=== PATIENT | male | born 1950 | race Caucasian/White ===

== ENCOUNTER → 2019-11-08 14:21 | Outpatient (BNVA) | payer MEDICAID, SELFPAY | PROVIDERS: Family Provider Nurse Practitioner; PCP Nurse Practitioner; Visit Provider Nurse Practitioner Family | DX: Z13.6 Encounter for screening for cardiovascular disorders (principal); I49.3 Ventricular premature depolarization; E55.9 Vitamin D deficiency, unspecified; F41.9 Anxiety disorder, unspecified; Z86.39 Personal history of other endocrine, nutritional and metabolic disease; F32.9 Major depressive disorder, single episode, unspecified | CPT/HCPCS: 80053; 80061; 82652; 84443; 85025 ==

== ENCOUNTER → 2021-01-01 14:55 | Outpatient (BNVA) | payer MEDICAID, SELFPAY | PROVIDERS: Family Provider Nurse Practitioner; PCP Nurse Practitioner; Visit Provider Nurse Practitioner Family | DX: M54.5 Low back pain (principal); S39.92XA Unspecified injury of lower back, initial encounter; X58.XXXA Exposure to other specified factors, initial encounter | CPT/HCPCS: 72100 ==

== ENCOUNTER 2021-07-27 19:25 | Emergency (ER) | payer MEDICAID, SELFPAY ==
[2021-07-27 19:28] VITALS: BP 126/80; PULSE 113; RESP 16; TEMP 36.6; O2SAT 97; BMI 17.7
--- NOTE | 2021-07-27 19:42 | CTR_ITS ---
PROCEDURE INFORMATION: Exam: CT Head Without Contrast Exam date and time: 07/27/2021 7:42 PM Age: 70 years old Clinical indication: Dizziness; Patient HX: C/O vertigo TECHNIQUE: Imaging protocol: Computed tomography of the head without contrast. Radiation optimization: All CT scans at this facility use at least one of these dose optimization techniques: automated exposure control; mA and/or kV adjustment per patient size (includes targeted exams where dose is matched to clinical indication); or iterative reconstruction. COMPARISON: CT head wo con* [id number] 06/11/2016 10:09 PM RADIATION DOSE METRICS: Total DLP (mGy-cm): 827.58 FINDINGS: Brain: No CT evidence for acute ischemia, mass or hemorrhage. Sulcal widening and ventricular enlargement are age related changes due to white matter volume loss and have slightly increased since 2016. Cerebral ventricles: No ventriculomegaly. Paranasal sinuses: Visualized sinuses are unremarkable. No fluid levels. Mastoid air cells: Visualized mastoid air cells are well aerated. Bones/joints: Unremarkable. No acute fracture. Soft tissues: Unremarkable. CT/CT head wo con* [id number] IMPRESSION: 1. No acute intracranial findings. 2. Age related changes Radiation Dose CTDIVOL = (mGy): DLP = 827.58 (mGy-cm)
--- NOTE | 2021-07-27 19:44 | ECG_ITS ---
[facility] Test Date: 2021-07-27 Pat Name: Minor Pardo Department: Room: Gender: Male Music Industry Intern: : 1950 Requested By: Hero Iyer Order Number: [id number] Corbett MD: Sheila Powers M.D. Measurements Intervals [place] Rate: 87 P: 81 VT: 135 QRS: 82 QRSD: 85 T: 83 QT: 312 QTc: 376 Interpretive Statements SINUS RHYTHM Compared to ECG 08/08/2015 10:15:32 T-wave abnormality no longer present Electronically Signed On 07-28-2021 21:07:05 CDT by Sheila Powers M.D. [id number] f
[2021-07-27 19:46] VITALS: BP 118/69; PULSE 94; RESP 16; TEMP 36.8; O2SAT 99
--- NOTE | 2021-07-27 19:46 | ED_ITS ---
HPI - Dizziness General: Chief Complaint: Dizziness Stated Complaint: Dizzy Time Seen by Provider: 07/27/21 19:36 History of Present Illness: HPI Narrative: 70-year-old male presents due to vertigo and chest pain. States vertigo started today when he turns his head. Is worse with turning the head. Denies any headache. Denies any focal numbness weakness or tingling. Denies any syncope. Also reports for the past 6 days has had constant right lateral chest pain. He believes he strained muscles. Denies any exertional or pleuritic component. Denies any shortness of breath or lower extremity pain or swelling. Denies nausea or vomiting. Denies fevers or chills. Review of Systems Narrative: - CONSTITUTIONAL: Denies weight loss, fever and chills. - HEENT: Denies changes in vision and hearing. - RESPIRATORY: Denies SOB and cough. - CV: As above - GI: Denies abdominal pain, nausea, vomiting and diarrhea. - : Denies dysuria and urinary frequency. - MSK: Denies myalgia and joint pain. - SKIN: Denies rash and pruritus. - NEUROLOGICAL: As above - PSYCHIATRIC: Denies suicidal ideation [facility] ED PFSH: Medical History Anxiety and depression History of iron deficiency PVC (premature ventricular contraction) Vitamin D deficiency Social History History of recent travel: Yes Details: [facility] Out of country: Yes Physical Exam Narrative: EXAM NARRATIVE: - GENERAL: Alert and oriented x 3. No acute distress. Well-nourished. - EYES: EOMI. Anicteric. - HENT: Atraumatic, no C-spine tenderness. Moist mucous membranes. No scleral icterus. No cervical lymphadenopathy. - LUNGS: Clear to auscultation bilaterally. No accessory muscle use. Equal lung sounds bilaterally. No respiratory distress. - CARDIOVASCULAR: Regular rate and rhythm. No murmur. No JVD. - ABDOMEN: Soft, non-tender and non-distended. Negative CVA tenderness bilaterally, no rebound or guarding, negative Bueno sign. No palpable masses. - EXTREMITIES: No edema. Non-tender. - SKIN: No rashes or lesions. Warm. - NEUROLOGIC: Positive Odette-Hallpike, positive head impulse but otherwise negative hints exam. GCS 15. no meningismus or focal neurological deficits. CN II-XII grossly intact. - PSYCHIATRIC: Cooperative. Appropriate mood and affect. Course Vital Signs: Vital signs: Vital Signs Temperature 98.3 F 07/27/21 22:21 Pulse Rate 94 07/27/21 22:21 Respiratory Rate 16 07/27/21 22:21 Blood Pressure 113/77 07/27/21 22:21 Pulse Oximetry 97 07/27/21 22:21 MDM - Dizziness MDM Narrative: Medical decision making narrative: 70-year-old male presents with vertigo. This inducible. Symptoms consistent with BPV. Improved with meclizine. CT scan of the head does not reveal any cranial hemorrhage or other acute abnormality remainder of neurologic exam is unremarkable. Symptoms started more than 24 hours ago. He also complains of 6 days of mild nonpleuritic nonexertional constant chest pain. Is inducible on exam by palpation of the right lateral chest. Suspect it is musculoskeletal. EKG and troponins not revealing sign of acute ischemia or other acute abnormality. Age- adjusted D-dimer is negative. Chest x-ray does not reveal pneumothorax or consolidation. No signs of broken ribs. Denies any history of hypertension hyperlipidemia diabetes or any other cardiac risk factors. Heart score would be 2 due to age. Prescription for meclizine provided. Referral to neurology provided. At this time I believe patient would be safe for discharge and outpatient follow-up. Return precautions provided. Plan was reviewed with the patient who expressed understanding. Questions answered. Patient will follow up with PCP. Patient discharged in stable condition. Lab Data: Labs: Lab Results 07/27/21 07/27/21 07/27/21 19:44 20:06 20:06 WBC RBC Hgb Hct MCV MCH MCHC RDW Plt Count MPV Neut % (Auto) Lymph % (Auto) Carter % (Auto) Eos % (Auto) Baso % (Auto) Neut # (Auto) Lymph # (Auto) Carter # (Auto) Eos # (Auto) Baso # (Auto) Nucleated RBC % (a uto) Nucleated RBCs # D-Dimer Sodium Potassium Chloride Carbon Dioxide Anion Gap BUN Creatinine GFR Calculation Glucose Calculated Osmolal ity Calcium Total Bilirubin AST ALT Alkaline Phosphata se Troponin T Baselin e NT-Pro-B Natriuret Pep Total Protein Albumin Globulin TSH Urine Color Yellow (Yellow) Urine Appearance Clear (CLEAR) Urine pH 5 (5-7) Ur Specific Gravit y 1.025 (1.005-1.030) Urine Protein Neg (Negative) Urine Glucose (UA) Norm (Normal) Urine Ketones Negative (Negative) Urine Blood Neg (Negative) Urine Nitrate Negative (Negative) Urine Bilirubin Neg (Negative) Urine Urobilinogen Norm mg/dL mg/dL (Negative) Ur Leukocyte Brandi ase Negative (Negative) Urine RBC 0-4 /hpf H /hpf (0-2) Urine WBC 0-4 /hpf H /hpf (0-5) Ur Squamous Epith Cells 0-4 /hpf H /hpf (0-5) Amorphous Sediment Not Reportable Urine Bacteria Trace /hpf /hpf (NONE) Urine Mucus 1+ /hpf /hpf Urine Opiates Scre en Negative ng/mL ng /mL (Negative) Ur Barbiturates Sc reen Negative ng/mL ng /mL (Negative) Ur Phencyclidine S crn Negative ng/mL ng /mL (Negative) Ur Amphetamines Sc reen Negative ng/mL ng /mL (Negative) U Benzodiazepines Scrn Negative ng/mL ng /mL (Negative) Urine Cocaine Scre en Negative ng/mL ng /mL (Negative) U Marijuana (THC) Screen Negative ng/mL ng /mL (Negative) SARS-CoV-2 Ag (Rap id) Negative (Negative) 07/27/21 07/27/21 07/27/21 20:08 20:08 20:08 WBC 5.5 10^3/uL 10^3/ uL (4.0-10.0) RBC 4.96 10^6/uL 10^6 /uL (4.1-5.3) Hgb 14.7 g/dL g/dL (11.7-16.6) Hct 44.3 % % (42.0-52.0) MCV 89.3 fl fl (80-94) MCH 29.6 pg pg (28.0-34.0) MCHC 33.2 g/dL g/dL (30.0-36.0) RDW 13.3 % % (12.1-15.1) Plt Count 303 10^3/cmm 10^3 /cmm (130-400) MPV 9.0 fL fL (7.4-10.4) Neut % (Auto) 45.6 % % Lymph % (Auto) 37.2 % % Carter % (Auto) 10.3 % % Eos % (Auto) 6.0 % % Baso % (Auto) 0.5 % % Neut # (Auto) 2.53 10^3/uL 10^3 /uL (1.8-7.7) Lymph # (Auto) 2.1 10^3/uL 10^3/ uL (0.8-4.8) Carter # (Auto) 0.6 10^3/uL 10^3/ uL (0.2-0.9) Eos # (Auto) 0.3 10^3/uL 10^3/ uL (0.0-0.8) Baso # (Auto) 0.0 10^3/uL 10^3/ uL (0.0-0.1) Nucleated RBC % (a uto) 0 % % Nucleated RBCs # 0.0 /100WBC /100W BC D-Dimer 0.70 ug/mIFEU H u g/mIFEU (0-0.59) Sodium 141 mmol/L mmol/L (136-145) Potassium 4.6 mmol/L mmol/L (3.5-5.1) Chloride 107 mmol/L mmol/L (98-107) Carbon Dioxide 25 mmol/L mmol/L (22-29) Anion Gap 13.6 (5-19) BUN 26 mg/dL H mg/dL (8-23) Creatinine 0.9 mg/dL mg/dL (0.7-1.2) GFR Calculation 83.4 mL/min L mL/ min (90-130) Glucose 98 mg/dL mg/dL (65-115) Calculated Osmolal ity 297 mOsm/kg H mOs m/kg (285-295) Calcium 9.3 mg/dL mg/dL (8.5-10.5) Total Bilirubin 0.2 mg/dL mg/dL (0.15-1.2) AST 32 U/L U/L (0-40) ALT 24 U/L U/L (0-41) Alkaline Phosphata se 103 IU/L IU/L (40-130) Troponin T Baselin e NT-Pro-B Natriuret Pep 51 pg/mL pg/mL (0-125) Total Protein 7.1 g/dL g/dL (6.6-8.7) Albumin 4.1 g/dL g/dL (3.5-5.2) Globulin 3.0 g/dL g/dL (1.3-4.6) TSH 3.51 uIU/mL uIU/m L (0.27-4.20) Urine Color Urine Appearance Urine pH Ur Specific Gravit y Urine Protein Urine Glucose (UA) Urine Ketones Urine Blood Urine Nitrate Urine Bilirubin Urine Urobilinogen Ur Leukocyte Brandi ase Urine RBC Urine WBC Ur Squamous Epith Cells Amorphous Sediment Urine Bacteria Urine Mucus Urine Opiates Scre en Ur Barbiturates Sc reen Ur Phencyclidine S crn Ur Amphetamines Sc reen U Benzodiazepines Scrn Urine Cocaine Scre en U Marijuana (THC) Screen SARS-CoV-2 Ag (Rap id) 07/27/21 20:08 WBC RBC Hgb Hct MCV MCH MCHC RDW Plt Count MPV Neut % (Auto) Lymph % (Auto) Carter % (Auto) Eos % (Auto) Baso % (Auto) Neut # (Auto) Lymph # (Auto) Carter # (Auto) Eos # (Auto) Baso # (Auto) Nucleated RBC % (a uto) Nucleated RBCs # D-Dimer Sodium Potassium Chloride Carbon Dioxide Anion Gap BUN Creatinine GFR Calculation Glucose Calculated Osmolal ity Calcium Total Bilirubin AST ALT Alkaline Phosphata se Troponin T Baselin e 7 ng/L ng/L (0-15) NT-Pro-B Natriuret Pep Total Protein Albumin Globulin TSH Urine Color Urine Appearance Urine pH Ur Specific Gravit y Urine Protein Urine Glucose (UA) Urine Ketones Urine Blood Urine Nitrate Urine Bilirubin Urine Urobilinogen Ur Leukocyte Brandi ase Urine RBC Urine WBC Ur Squamous Epith Cells Amorphous Sediment Urine Bacteria Urine Mucus Urine Opiates Scre en Ur Barbiturates Sc reen Ur Phencyclidine S crn Ur Amphetamines Sc reen U Benzodiazepines Scrn Urine Cocaine Scre en U Marijuana (THC) Screen SARS-CoV-2 Ag (Rap id) EKG Data^: EKG 1: Other EKG comments: Normal sinus rhythm, rate of 87, T wave inversions in aVL, otherwise no sign of acute ischemia or other acute abnormality. Discharge Plan Discharge Patient Disposition: Home Clinical Impression: BPPV (benign paroxysmal positional vertigo), Chest pain Condition: Stable Prescriptions: New meclizine 25 mg tablet 25 mg PO TID PRN (Reason: vertigo) Qty: 10 RF: 0 No Action buspirone 15 mg tablet 15 mg PO BID Qty: 60 RF: 5 duloxetine [Cymbalta] 30 mg capsule,delayed release(DR/EC) 30 mg PO BID 30 Days Qty: 60 RF: 5 gabapentin 300 mg capsule 300 mg PO TID 30 Days Qty: 90 RF: 2 melatonin 3 mg capsule 3 mg PO .hs RF: 0 vitamin d 50,000 unit PO RF: 0 ferrous sulfate 325 mg (65 mg iron) tablet 325 mg PO QDAY 30 Days Qty: 30 RF: 2 Discharge Orders: Discharge ED (Routine); Ordered 07/27/21 Ordered By: Hero Iyer Referrals: Myles Rogers, FLARE STITCHER-C [Primary Care Provider] - 1-3 days Patient Instructions: Chest Pain (ED), Benign Paroxysmal Positional Vertigo (ED), Dizziness (ED), Opioid Safety Coding Level of Care Code ED Transplant Registered Nurse for Jhoana Quach
[2021-07-27] MEDS: aspirin 81 mg Chew Tablet 324 MG PO (19:56)
[2021-07-27] MEDS: meclizine 25 mg tablet PO (19:56)
[2021-07-27 20:02] VITALS: BP 110/73; PULSE 98; RESP 18; TEMP 36.8; O2SAT 97
[2021-07-27 20:16] LABS: Basophils % 0.5 %; Eosinophils # 0.3 10^3/uL (0.0-0.8); Hematocrit 44.3 % (42.0-52.0); Hemoglobin 14.7 g/dL (11.7-16.6); Lymphocytes # 2.1 10^3/uL (0.8-4.8); Lymphocytes % 37.2 %; Mean Corpuscular HGB Conc 33.2 g/dL (30.0-36.0); Mean Corpuscular Hemoglobin 29.6 pg (28.0-34.0); Mean Corpuscular Volume 89.3 fl (80-94); Monocytes # 0.6 10^3/uL (0.2-0.9); Monocytes % 10.3 %; Neutrophils # 2.53 10^3/uL (1.8-7.7); Neutrophils % 45.6 %; Nucleated Red Blood Cells % 0 %; Platelet Count 303 10^3/cmm (130-400); Red Blood Count 4.96 10^6/uL (4.1-5.3); Red Cell Distribution Width 13.3 % (12.1-15.1); White Blood Count 5.5 10^3/uL (4.0-10.0)
[2021-07-27 20:28] LABS: Add Urine Culture? No; Bacteria Urine TRACE /hpf; Bilirubin Urine Neg (Negative); Blood Urine Neg (Negative); Glucose Urine UA Norm (Normal); Ketones Urine Negative (Negative); Leukocyte Esterase Urine Negative (Negative); Mucus Urine 1+ /hpf; Nitrate Urine Negative (Negative); Protein Urine Neg (Negative); RBC Urine 0-4 /hpf (0-2); Specific Gravity, Urine 1.025 (1.005-1.030); Squamous Epithelial Cell Urine 0-4 /hpf (0-5); Urine Appearance Clear (CLEAR); Urine Color Yellow (Yellow); Urobilinogen Urine Norm (Negative); WBC Urine 0-4 /hpf (0-5); pH Urine 5 (5-7)
[2021-07-27 20:31] LABS: Amphetamines Screen Urine Negative (Negative); Barbiturates Screen Urine Negative (Negative); Benzodiazepines Screen Urine Negative (Negative); Cocaine Screen Urine Negative (Negative); Opiate Screen Urine Negative (Negative); PCP Screen Urine Negative (Negative); THC Screen Urine Negative (Negative)
[2021-07-27 20:34] LABS: SARS Covid-2 Antigen Negative (Negative)
[2021-07-27 20:40] LABS: Troponin(5th) Baseline 7 ng/L (0-15)
[2021-07-27 20:50] LABS: Alanine Aminotransferase 24 U/L (0-41); Albumin Level 4.1 g/dL (3.5-5.2); Alkaline Phosphatase 103 IU/L (40-130); Anion Gap 13.6 (5-19); Aspartate Amino Transferase 32 U/L (0-40); Blood Urea Nitrogen 26 mg/dL (8-23); Calcium 9.3 mg/dL (8.5-10.5); Carbon Dioxide 25 mmol/L (22-29); Chloride 107 mmol/L (98-107); Glomerular Filtration Rate 83.4 mL/min (90-130); Glucose 98 mg/dL (65-115); NT Pro B Type Natriuretic Pept 51 pg/mL (0-125); Osmolality Calculated 297 mOsm/kg (285-295); Potassium 4.6 mmol/L (3.5-5.1); Sodium 141 mmol/L (136-145); Thyroid Stimulating Hormone 3.51 uIU/mL (0.27-4.20); Total Bilirubin 0.2 mg/dL (0.15-1.2); Total Protein 7.1 g/dL (6.6-8.7)
[2021-07-27 21:14] VITALS: BP 123/86; PULSE 86; RESP 16; O2SAT 100
--- NOTE | 2021-07-27 21:21 | XRR_ITS ---
PROCEDURE INFORMATION: Exam: XR Chest Exam date and time: 07/27/2021 9:21 PM Age: 70 years old Clinical indication: Pain; Chest pressure; Additional info: Chest pain TECHNIQUE: Imaging protocol: XR of the chest. Views: 1 view. COMPARISON: CR Chest 1 [place] [id number] 04/11/2015 1:41 PM FINDINGS: Lungs: Unremarkable. No consolidation. Pleural spaces: Unremarkable. No pleural effusion. No pneumothorax. Heart/Mediastinum: Unremarkable. No cardiomegaly. Bones/joints: Unremarkable. XR/XR chest 1V portable [id number] IMPRESSION: No change, unremarkable Radiation Dose CTDIVOL = (mGy): DLP = (mGy-cm)
--- NOTE | 2021-07-27 21:44 | ECG_ITS ---
[facility] Test Date: 2021-07-27 Pat Name: Minor Pardo Department: Room: Gender: Male Clinical Support Associate: : 1950 Requested By: Hero Iyer Order Number: [id number] Corbett MD: Sheila Powers M.D. Measurements Intervals [place] Rate: 85 P: 78 VA: 128 QRS: 77 QRSD: 86 T: 79 QT: 331 QTc: 395 Interpretive Statements SINUS RHYTHM LOW QRS VOLTAGE IN PRECORDIAL LEADS [QRS DEFLECTION < 1.0 mV IN CHEST LEADS] Compared to ECG 07/27/2021 20:16:12 Low QRS voltage now present Electronically Signed On 07-28-2021 21:27:04 CDT by Sheila Powers M.D. [id number] f
[2021-07-27 22:02] VITALS: BP 131/87; PULSE 90; RESP 16; TEMP 36.9; O2SAT 100
[2021-07-27 22:21] VITALS: BP 113/77; PULSE 94; RESP 16; TEMP 36.8; O2SAT 97
[2021-07-27 22:38] LABS: Troponin 5 2HR 7.01 ng/L (0-15); Troponin 5 2HR Delta 0.01 ABS# (0-10)
--- NOTE | 2021-07-30 11:04 | DCPLANNER ---
senior branch manager had message to schedule a follow up appointment for patient with neurology. senior branch manager emailed patients information to the neurology clinic. Patients information will be printed and reviewed. Clinic will call patient with appointment information.
--- NOTE | 2021-08-23 07:19 | DCPLANNER ---
packaging manager was told that clinic has tried to call patient to schedule an appointment. Clinic was unable to speak with patient at this time, a voicemail was left for patient to call clinic and schedule a follow up appointment if needed.
== END 2021-07-27 22:34 | disposition home or self-care (01) ==
PROVIDERS: Emergency Provider Emergency Medicine; PCP Nurse Practitioner
DX: H81.10 Benign paroxysmal vertigo, unspecified ear (principal); R07.9 Chest pain, unspecified; Z20.822 Contact with and (suspected) exposure to COVID-19
CPT/HCPCS: 70450; 71045; 80053; 80306; 81001; 83880; 84443; 84484; 85025; 85378; 87426; 93005; 99284; J8597

== ENCOUNTER 2021-08-22 08:27 | Emergency (ER) | payer MEDICAID, SELFPAY ==
[2021-08-22 08:35] VITALS: BP 146/91; PULSE 67; RESP 20; TEMP 36.7; O2SAT 99; BMI 17.2
--- NOTE | 2021-08-22 08:50 | ED_ITS ---
HPI - Abdominal Pain General: Chief Complaint: General Medical Stated Complaint: Body Aches, SOB Time Seen by Provider: 08/22/21 08:43 History of Present Illness: HPI narrative: 70-year-old presents due to diffuse body aches. States worst area of pain is in his abdomen. States this has been ongoing for a week. Approximately 3 weeks ago was seen for vertigo and states that this improved with meclizine. At that time also reports some chest pain but states that he does not currently have pain in his chest but reports pains all over his body particularly the muscles of his extremities and back. Denies any focal numbness weakness or tingling. Denies fevers or chills. Denies nausea vomiting diarrhea or constipation. Denies urinary or fecal incontinence or saddle anesthesia. Denies recent trauma. Denies urethral discharge or dysuria. Patient reports shortness of breath triage but denies this to me. Review of Systems Narrative: - CONSTITUTIONAL: Denies weight loss, fever and chills. - HEENT: Denies changes in vision and hearing. - RESPIRATORY: Denies SOB and cough. - CV: Denies palpitations and CP. - GI: As above - : Denies dysuria and urinary frequency. - MSK: As above - SKIN: Denies rash and pruritus. - NEUROLOGICAL: Denies headache, weakness, numbness and syncope. - PSYCHIATRIC: Denies suicidal ideation [facility] ED PFSH: Medical History Anxiety and depression History of iron deficiency PVC (premature ventricular contraction) Vitamin D deficiency Social History History of recent travel: Yes Details: [place] Out of country: Yes Physical Exam Narrative: EXAM NARRATIVE: - GENERAL: Thin, alert and oriented x 3. No acute distress. Well-nourished. - EYES: EOMI. Anicteric. - HENT: Atraumatic, no C-spine tenderness. Moist mucous membranes. No scleral icterus. No cervical lymphadenopathy. - LUNGS: Clear to auscultation bilaterally. No accessory muscle use. Equal lung sounds bilaterally. No respiratory distress. - CARDIOVASCULAR: Regular rate and rhythm. No murmur. No JVD. - ABDOMEN: Soft, mild diffuse tenderness, non-distended. Negative CVA tenderness bilaterally, no rebound or guarding, negative Bueno sign. No palpable masses. - EXTREMITIES: No edema. Non-tender. - SKIN: No rashes or lesions. Warm. - NEUROLOGIC: No meningismus or focal neurological deficits. CN II-XII grossly intact. - PSYCHIATRIC: Cooperative. Appropriate mood and affect. Course Vital Signs: Vital signs: Vital Signs Temperature 98.0 F 08/22/21 08:35 Pulse Rate 88 08/22/21 10:12 Respiratory Rate 16 08/22/21 10:12 Blood Pressure 145/74 08/22/21 10:12 Pulse Oximetry 98 08/22/21 10:12 MDM - Abdominal Pain MDM Narrative: Medical decision making narrative: 70-year-old presents due to diffuse abdominal pain muscle aches. Initial complaint of shortness of breath in triage but denies this to me. Physical exam unremarkable except for mild abdominal tenderness. CT scan of the abdomen pelvis unremarkable but patient does have significant motion artifact. However given the tach is lab work is unremarkable does not have any lactic acidosis or elevated white count and unremarkable urine probability acute abdominal etiology is significantly lower. He is hemodynamically stable afebrile nontoxic-appearing. Symptoms significantly improved with Bentyl. Prescription for Bentyl provided. At this time I believe patient would be safe for discharge and outpatient follow-up. Return precautions provided. Plan was reviewed with the patient who expressed understanding. Questions answered. Patient will follow up with PCP. Patient discharged in stable condition. Lab Data: Labs: Lab Results 08/22/21 08/22/21 08/22/21 09:05 09:05 09:05 WBC 6.5 10^3/uL 10^3/ uL (4.0-10.0) RBC 4.98 10^6/uL 10^6 /uL (4.1-5.3) Hgb 14.4 g/dL g/dL (11.7-16.6) Hct 44.5 % % (42.0-52.0) MCV 89.4 fl fl (80-94) MCH 28.9 pg pg (28.0-34.0) MCHC 32.4 g/dL g/dL (30.0-36.0) RDW 14.0 % % (12.1-15.1) Plt Count 333 10^3/cmm 10^3 /cmm (130-400) MPV 9.2 fL fL (7.4-10.4) Neut % (Auto) 39.5 % % Lymph % (Auto) 44.3 % % [place] % (Auto) 9.1 % % Eos % (Auto) 6.3 % % Baso % (Auto) 0.6 % % Neut # (Auto) 2.56 10^3/uL 10^3 /uL (1.8-7.7) Lymph # (Auto) 2.9 10^3/uL 10^3/ uL (0.8-4.8) [place] # (Auto) 0.6 10^3/uL 10^3/ uL (0.2-0.9) Eos # (Auto) 0.4 10^3/uL 10^3/ uL (0.0-0.8) Baso # (Auto) 0.0 10^3/uL 10^3/ uL (0.0-0.1) Nucleated RBC % (a uto) 0 % % Nucleated RBCs # 0.0 /100WBC /100W BC Sodium Cancelled Potassium Cancelled Chloride Cancelled Carbon Dioxide Cancelled Anion Gap Cancelled BUN Cancelled Creatinine Cancelled GFR Calculation Cancelled Glucose Cancelled Calculated Osmolal ity Cancelled Lactate Cancelled Calcium Cancelled Total Bilirubin Cancelled AST Cancelled ALT Cancelled Alkaline Phosphata se Cancelled Creatine Kinase Cancelled Troponin T Baselin e Troponin T [address] [place] Troponin T NT-Pro-B Natriuret Pep Cancelled Total Protein Cancelled Albumin Cancelled Globulin Cancelled Lipase Cancelled TSH Cancelled Free T4 Cancelled Urine Color Urine Appearance Urine pH Ur Specific Gravit y Urine Protein Urine Glucose (UA) Urine Ketones Urine Blood Urine Nitrate Urine Bilirubin Urine Urobilinogen Ur Leukocyte Brandi ase Urine RBC Urine WBC Ur Squamous Epith Cells Amorphous Sediment Urine Bacteria SARS-CoV-2 Ag (Rap id) 08/22/21 08/22/21 08/22/21 09:05 09:05 09:45 WBC RBC Hgb Hct MCV MCH MCHC RDW Plt Count MPV Neut % (Auto) Lymph % (Auto) [place] % (Auto) Eos % (Auto) Baso % (Auto) Neut # (Auto) Lymph # (Auto) [place] # (Auto) Eos # (Auto) Baso # (Auto) Nucleated RBC % (a uto) Nucleated RBCs # Sodium 139 mmol/L mmol/L (136-145) Potassium 4.3 mmol/L mmol/L (3.5-5.1) Chloride 105 mmol/L mmol/L (98-107) Carbon Dioxide 24 mmol/L mmol/L (22-29) Anion Gap 14.3 (5-19) BUN 19 mg/dL mg/dL (8-23) Creatinine 0.7 mg/dL mg/dL (0.7-1.2) GFR Calculation 111.5 mL/min mL/m in (90-130) Glucose 84 mg/dL mg/dL (65-115) Calculated Osmolal ity 289 mOsm/kg mOsm/ kg (285-295) Lactate Calcium 8.9 mg/dL mg/dL (8.5-10.5) Total Bilirubin 0.2 mg/dL mg/dL (0.15-1.2) AST 26 U/L U/L (0-40) ALT 20 U/L U/L (0-41) Alkaline Phosphata se 91 IU/L IU/L (40-130) Creatine Kinase 63 U/L U/L (39-308) Troponin T Baselin e Cancelled Troponin T [address] [place] Troponin T NT-Pro-B Natriuret Pep 77 pg/mL pg/mL (0-125) Total Protein 6.6 g/dL g/dL (6.6-8.7) Albumin 3.9 g/dL g/dL (3.5-5.2) Globulin 2.7 g/dL g/dL (1.3-4.6) Lipase 79 U/L H U/L (13-60) TSH 1.79 uIU/mL uIU/m L (0.27-4.20) Free T4 1.33 ng/dL ng/dL (0.82-1.77) Urine Color Urine Appearance Urine pH Ur Specific Gravit y Urine Protein Urine Glucose (UA) Urine Ketones Urine Blood Urine Nitrate Urine Bilirubin Urine Urobilinogen Ur Leukocyte Brandi ase Urine RBC Urine WBC Ur Squamous Epith Cells Amorphous Sediment Urine Bacteria SARS-CoV-2 Ag (Rap id) Negative (Negative) 08/22/21 08/22/21 08/22/21 09:45 09:45 10:09 WBC RBC Hgb Hct MCV MCH MCHC RDW Plt Count MPV Neut % (Auto) Lymph % (Auto) [place] % (Auto) Eos % (Auto) Baso % (Auto) Neut # (Auto) Lymph # (Auto) [place] # (Auto) Eos # (Auto) Baso # (Auto) Nucleated RBC % (a uto) Nucleated RBCs # Sodium Potassium Chloride Carbon Dioxide Anion Gap BUN Creatinine GFR Calculation Glucose Calculated Osmolal ity Lactate 0.6 mmol/L mmol/L (0.5-2.2) Calcium Total Bilirubin AST ALT Alkaline Phosphata se Creatine Kinase Troponin T Baselin e 6 ng/L ng/L (0-15) Troponin T [address] [place] Troponin T NT-Pro-B Natriuret Pep Total Protein Albumin Globulin Lipase TSH Free T4 Urine Color Straw (Yellow) Urine Appearance Clear (CLEAR) Urine pH 5 (5-7) Ur Specific Gravit y 1.020 (1.005-1.030) Urine Protein Neg (Negative) Urine Glucose (UA) Norm (Normal) Urine Ketones Negative (Negative) Urine Blood Neg (Negative) Urine Nitrate Negative (Negative) Urine Bilirubin Neg (Negative) Urine Urobilinogen Norm mg/dL mg/dL (Negative) Ur Leukocyte Brandi ase Negative (Negative) Urine RBC 0-4 /hpf H /hpf (0-2) Urine WBC 0-4 /hpf H /hpf (0-5) Ur Squamous Epith Cells 0-4 /hpf H /hpf (0-5) Amorphous Sediment Not Reportable Urine Bacteria Trace /hpf /hpf (NONE) SARS-CoV-2 Ag (Rap id) 08/22/21 11:54 WBC RBC Hgb Hct MCV MCH MCHC RDW Plt Count MPV Neut % (Auto) Lymph % (Auto) [place] % (Auto) Eos % (Auto) Baso % (Auto) Neut # (Auto) Lymph # (Auto) [place] # (Auto) Eos # (Auto) Baso # (Auto) Nucleated RBC % (a uto) Nucleated RBCs # Sodium Potassium Chloride Carbon Dioxide Anion Gap BUN Creatinine GFR Calculation Glucose Calculated Osmolal ity Lactate Calcium Total Bilirubin AST ALT Alkaline Phosphata se Creatine Kinase Troponin T Baselin e Troponin T [address] [place] 6.92 ng/L ng/L (0-15) Delta Troponin T 0.92 ABS# ABS# (0-10) NT-Pro-B Natriuret Pep Total Protein Albumin Globulin Lipase TSH Free T4 Urine Color Urine Appearance Urine pH Ur Specific Gravit y Urine Protein Urine Glucose (UA) Urine Ketones Urine Blood Urine Nitrate Urine Bilirubin Urine Urobilinogen Ur Leukocyte Brandi ase Urine RBC Urine WBC Ur Squamous Epith Cells Amorphous Sediment Urine Bacteria SARS-CoV-2 Ag (Rap id) EKG Data ^: EKG 1: Other EKG comments: Sinus rhythm, rate of 86, no sign of acute ischemia or other acute abnormality. Discharge Plan Discharge Patient Disposition: Home Clinical Impression: Abdominal pain Condition: Stable Prescriptions: New dicyclomine 20 mg tablet 20 mg PO QID Qty: 20 RF: 0 No Action multivitamin Tablet 1 tab PO DAILY RF: 0 melatonin 5 mg Tablet 5 mg PO BEDTIME PRN (Reason: Sleep) RF: 0 ferrous sulfate 325 mg (65 mg iron) tablet 325 mg PO DAILY RF: 0 Discharge Orders: Discharge ED (Routine); Ordered 08/22/21 Ordered By: Hero Iyer Referrals: Myles Rogers, AUDIO PRODUCTION INSTRUCTOR-C [Primary Care Provider] - 1-3 days Patient Instructions: Abdominal Pain (ED), Opioid Safety Coding Level of Care Code ED Travel Pta for Jhoana Quach
--- NOTE | 2021-08-22 08:50 | CT_ITS ---
WS: [id number] CT ABDOMEN AND PELVIS WITH CONTRAST HISTORY: Diffuse abdominal pain for one week. TECHNIQUE: Imaging performed of the abdomen and pelvis with IV contrast. Single phase imaging of the abdomen. Coronal and sagittal reformats are submitted. All CT scans at [facility] use at [address] one of these dose optimization techniques: automated exposure control; mA and/or kV adjustment per patient size (includes targeted exams where dose is matched to clinical indication); or iterative re construction. IV CONTRAST: Omnipaque 350; 95 mL IV. Oral contrast: No DLP: 622.67 mGy.cm COMPARISON: 09/19/2012 Lower thorax: Hyperexpanded lung bases. Heart is normal size. Small hiatal hernia. Liver/biliary system: Normal size with no intrahepatic dilatation. Gallbladder: Normal. No gallstones or wall thickening. No pericholecystic fluid. Pancreas: Normal size pancreas and pancreatic duct. No adjacent inflammation. Spleen: Normal size spleen. No mass or infarct. Adrenal glands: Normal. Right kidney: Normal. Left kidney: Normal. Aorta: Moderate sclerosis with no aneurysm. Significant motion artifact throughout the abdomen and pelvis. Small foci of free air with be obscure d. Lymphadenopathy: None. Free fluid: None. GI tract: Moderate diffuse fecal retention and constipation. Prior appendectomy. No wall thickening. Marked distention of the rectum with inspissated fecal material. Abdominal wall: Unremarkable abdominal wall. No hernia. Pelvis: Well-distended urinary bladder. Bones: Degenerative RIGHT curvature lumbar spine. Advanced degenerative disc disease at L2-3 and L3-[address]/CT abdomen pelvis w con* [id number] IMPRESSION: 1. Significant motion artifact throughout the abdomen and pelvis. 2. Marked diffuse constipation and obstipation. 3. No free air identified but small foci of free air would easily be obscured with this amount of motion. 4. No acute process identified.
--- NOTE | 2021-08-22 08:50 | XR_ITS ---
WS: [id number] Portable AP upright chest, 08/22/2021 Clinical Data: sob Comparison: Portable chest, 07/27/2021. Findings: No nodules, masses or effusions are seen. The heart is normal. The pulmonary vascularity is not increased. No pneumonia or pneumothorax is seen. The aortic arch and descending thoracic aorta s how tortuosity. There is a levoscoliosis of the thoracic spine. Monitor leads are on the chest wall. XR/XR chest 1V portable [id number] Impression: Atherosclerosis.
[2021-08-22 09:15] VITALS: BP 118/90; PULSE 90; RESP 19; O2SAT 98
--- NOTE | 2021-08-22 09:18 | PC.NURSE ---
Pt is very anxious and hyperverbal. Pt at time will not answer assessment questions and will be hyperverbal regarding his parents, the war , recreational activities, et. Pt consistently rubbing his abd and cardiac leads. Pt educated how important it is to not interfere with cardiac cords. Pt verbalizes understanding but continues to rub and pull in the area of the cords.
[2021-08-22 09:19] LABS: Basophils % 0.6 %; Eosinophils # 0.4 10^3/uL (0.0-0.8); Eosinophils % 6.3 %; Hematocrit 44.5 % (42.0-52.0); Hemoglobin 14.4 g/dL (11.7-16.6); Lymphocytes # 2.9 10^3/uL (0.8-4.8); Lymphocytes % 44.3 %; Mean Corpuscular HGB Conc 32.4 g/dL (30.0-36.0); Mean Corpuscular Hemoglobin 28.9 pg (28.0-34.0); Mean Corpuscular Volume 89.4 fl (80-94); Mean Platelet Volume 9.2 fL (7.4-10.4); Monocytes # 0.6 10^3/uL (0.2-0.9); Monocytes % 9.1 %; Neutrophils # 2.56 10^3/uL (1.8-7.7); Neutrophils % 39.5 %; Nucleated Red Blood Cells % 0 %; Platelet Count 333 10^3/cmm (130-400); Red Blood Count 4.98 10^6/uL (4.1-5.3); White Blood Count 6.5 10^3/uL (4.0-10.0)
--- NOTE | 2021-08-22 09:23 | PC.PHAR ---
pt states he takes no rx medications-pt states he hasnt taken metoprolol in a year ext med history doesnt show when last filled-pt states he hasnt taken buspar in months ext med history shows last filled 04/18/21 30d/s-pt states he hasnt taken cymbalta or gabapentin in months ext med history shows last filled 12/27/20 30d/s
[2021-08-22] MEDS: dicyclomine 20 mg Tablet PO (09:47)
[2021-08-22 09:49] LABS: SARS Covid-2 Antigen Negative (Negative)
[2021-08-22 10:12] VITALS: BP 145/74; PULSE 88; RESP 16; O2SAT 98
[2021-08-22 10:13] LABS: Lactate (Lactic Acid level) 0.6 mmol/L (0.5-2.2)
--- NOTE | 2021-08-22 10:13 | PC.NURSE ---
Pt is calm at this time. Reports that medication has helped with his pain.
[2021-08-22 10:14] LABS: Troponin(5th) Baseline 6 ng/L (0-15)
[2021-08-22 10:22] LABS: Alanine Aminotransferase 20 U/L (0-41); Albumin Level 3.9 g/dL (3.5-5.2); Alkaline Phosphatase 91 IU/L (40-130); Anion Gap 14.3 (5-19); Aspartate Amino Transferase 26 U/L (0-40); Blood Urea Nitrogen 19 mg/dL (8-23); Calcium 8.9 mg/dL (8.5-10.5); Carbon Dioxide 24 mmol/L (22-29); Chloride 105 mmol/L (98-107); Creatine Phosphokinase 63 U/L (39-308); Creatinine Clr Calc Pharmacy 60.6363; Free T4 Free Thyroxine 1.33 ng/dL (0.82-1.77); Globulin 2.7 g/dL (1.3-4.6); Glomerular Filtration Rate 111.5 mL/min (90-130); Glucose 84 mg/dL (65-115); Lipase 79 U/L (13-60); NT Pro B Type Natriuretic Pept 77 pg/mL (0-125); Osmolality Calculated 289 mOsm/kg (285-295); Potassium 4.3 mmol/L (3.5-5.1); Sodium 139 mmol/L (136-145); Thyroid Stimulating Hormone 1.79 uIU/mL (0.27-4.20); Total Bilirubin 0.2 mg/dL (0.15-1.2); Total Protein 6.6 g/dL (6.6-8.7)
[2021-08-22 10:33] LABS: Bilirubin Urine Neg (Negative); Blood Urine Neg (Negative); Glucose Urine UA Norm (Normal); Ketones Urine Negative (Negative); Nitrate Urine Negative (Negative); Protein Urine Neg (Negative); Urine Appearance Clear (CLEAR); Urine Color Straw (Yellow); Urobilinogen Urine Norm (Negative); pH Urine 5 (5-7)
[2021-08-22 10:34] LABS: Leukocyte Esterase Urine Negative (Negative)
[2021-08-22] MEDS: iohexol 350 mg/mL 100 mL Btl IV (10:37)
[2021-08-22 10:38] LABS: Bacteria Urine TRACE /hpf; RBC Urine 0-4 /hpf (0-2); Squamous Epithelial Cell Urine 0-4 /hpf (0-5); WBC Urine 0-4 /hpf (0-5)
[2021-08-22 10:39] LABS: Add Urine Culture? No
[2021-08-22 12:28] LABS: Troponin 5 2HR 6.92 ng/L (0-15); Troponin 5 2HR Delta 0.92 ABS# (0-10)
[2021-08-22 12:56] LABS: Creatine Phosphokinase 64 U/L (39-308)
--- NOTE | 2021-08-22 14:51 | ECG_ITS ---
[facility] Test Date: 2021-08-22 Pat Name: Minor Pardo Department: Room: Gender: Male Livestock Farm Manager: : 1950 Requested By: Hero Iyer Order Number: [id number] Chelle MD: Santa Kline M.D. Measurements Intervals [place] Rate: 86 P: 81 MD: 145 QRS: 77 QRSD: 90 T: 76 QT: 325 QTc: 389 Interpretive Statements SINUS RHYTHM Compared to ECG 07/27/2021 21:42:42 No significant changes Electronically Signed On 08-22-2021 22:54:11 FARROWING MANAGER by Santa Kline M.D. [id number]
== END 2021-08-22 13:02 | disposition home or self-care (01) ==
PROVIDERS: Emergency Provider Emergency Medicine; PCP Nurse Practitioner
DX: R10.9 Unspecified abdominal pain (principal); Z20.822 Contact with and (suspected) exposure to COVID-19
CPT/HCPCS: 71045; 74177; 80053; 81001; 82550; 83605; 83690; 83880; 84439; 84443; 84484; 85025; 87426; 93005; 99283; Q9967

== ENCOUNTER 2021-08-23 13:04 | Emergency (ER) | payer MEDICAID, SELFPAY ==
[2021-08-23 13:35] VITALS: BP 153/77; PULSE 99; RESP 18; TEMP 36.9; O2SAT 96; BMI 18.1
--- NOTE | 2021-08-23 14:00 | CT_ITS ---
WS: [id number] CT HEAD TECHNIQUE: Noncontrast CT of the head obtained from the skullbase to the vertex. CLINICAL INFORMATION: seizure COMPARISON: July 27, 2021 DLP: 1341.[address] scans at [facility] use at least one of these dose optimization techniques: automated e xposure control; mA and/or kV adjustment per patient size (includes targeted exams where dose is matc hed to clinical indication); or iterative reconstruction. FINDINGS: Some images are degraded by motion. No evidence of intracranial hemorrhage or mass effect. Ventricular system and basal cisterns are lee nt. Mild small vessel changes with mild parenchymal volume loss. No extra-axial fluid collections. No evidence of mass or mass effect. Paranasal sinuses and mastoid air cells are well aerated. .Normal visualized soft tissues. CT/CT head wo con* [id number] IMPRESSION: 1. No evidence of intracranial hemorrhage or mass effect. 2. Mild small vessel changes. Mild parenchymal volume loss. 3. No acute intracranial findings.
--- NOTE | 2021-08-23 14:35 | ED_ITS ---
HPI - Seizure General: Chief Complaint: Seizure Stated Complaint: pt stating having Seizures Time Seen by Provider: 08/23/21 14:34 History of Present Illness: HPI Narrative: 70-year-old male presents emergency room reporting that he has had a seizure. Is witnessed by bystander. Happened just prior to arrival here he denies any muscle ache headache post episode. He denies any loss of recall of any of the events pre or post seizure. MD complaint: possible seizure Onset (ago): minute(s) Description of Episode: loss of consciousness and tonic-clonic movement Witnessed: Yes - by Bystander Trauma: No Seizure History: Yes Place: Outdoors Possible Precipitating Event: lack of sleep Associated symptoms: Deny chest pain, chills, confusion, cough, diaphoresis, fever(s), anorexia, malaise, rash, short of breath, syncope or weakness Treatments prior to arrival: none Review of Systems Const: Denies: fever(s), chills, malaise or diaphoresis ENMT: Denies: throat pain, ear or mastoid pain, nasal discharge or nasal congestion Card: Denies: chest pain or syncope Resp: Denies: dyspnea, productive cough or non-productive cough GI: Denies: abdominal pain, nausea, vomiting, hematemesis, coffee ground emesis, diarrhea, constipation, bloating, hematochezia or melena : Denies: flank pain, dysuria, urinary frequency or urinary urgency Skin/Breast: Denies: rash or pruritus Neuro: Denies: confusion PFSH ED PFSH: Medical History Anxiety and depression History of iron deficiency PVC (premature ventricular contraction) Vitamin D deficiency Social History History of recent travel: Yes Details: [place] Out of country: Yes Physical Exam Const: COMMON NORMALS: no acute distress GENERAL APPEARANCE: cooperative and comfortable ORIENTATION/CONSCIOUSNESS: Yes awake, Yes oriented to person, Yes oriented to place and Yes oriented to time HENMT: COMMON NORMALS: normocephalic, atraumatic and hearing grossly normal bilaterally HEAD & SCALP: normocephalic and atraumatic Neck/C-Spine: COMMON NORMALS: no JVD Resp: COMMON NORMALS: normal respiratory effort, No retractions, No use of accessory muscles and clear to auscultation bilaterally AUSCULTATION: clear to auscultation bilaterally Cardio: COMMON NORMALS: no JVD, regular rate, regular rhythm and No murmurs present (Cardio) RATE: regular rate RHYTHM: regular rhythm GI: COMMON NORMALS: Soft to palpation and No hepatosplenomegaly present AUSCULTATION: Yes normoactive bowel sounds PALPATION: Yes Soft to palpation, No Tenderness to palpation present (GI), No Guarding due to palpation present (GI) and Yes No hepatosplenomegaly present Extremity: COMMON NORMALS: normal to inspection, capillary refill normal, no clubbing, cyanosis or edema, no calf tenderness and no pedal edema Neuro: SENSORIUM/ORIENTATION: Yes oriented to person, Yes oriented to place and Yes oriented to time Skin: COMMON NORMALS: no rashes or lesions noted GENERAL SKIN EXAM: no rashes or lesions noted Course Vital Signs: Vital signs: Vital Signs Temperature 98.4 F 08/23/21 13:35 Pulse Rate 99 08/23/21 13:35 Respiratory Rate 18 08/23/21 13:35 Blood Pressure 153/77 08/23/21 13:35 Pulse Oximetry 96 08/23/21 13:35 MDM - Seizure MDM Narrative: Medical decision making narrative: Labs and imaging reviewed. He had been very sleepy prior to the week prior to this. He reports a previous history of seizures but has been off medications and not any problem for a number of years. At this point he does not seem to have particularly had a postictal phase. Not can start him on any antiseizure medications. Will have him get a sleep deprived EEG and MRI of the head with and without contrast. Asked him not to drive until he is cleared by neurology. Set up a follow-up with neurology. If he has any recurrence return. If he would have another seizure would likely need to be started on antiseizure medications. Lab Data: Labs: Lab Results 08/23/21 08/23/21 15:11 15:11 WBC 5.5 10^3/uL 10^3/ uL (4.0-10.0) RBC 4.88 10^6/uL 10^6 /uL (4.1-5.3) Hgb 14.0 g/dL g/dL (11.7-16.6) Hct 42.7 % % (42.0-52.0) MCV 87.5 fl fl (80-94) MCH 28.7 pg pg (28.0-34.0) MCHC 32.8 g/dL g/dL (30.0-36.0) RDW 14.1 % % (12.1-15.1) Plt Count 357 10^3/cmm 10^3 /cmm (130-400) MPV 9.3 fL fL (7.4-10.4) Neut % (Auto) 65.3 % % Lymph % (Auto) 26.5 % % [place] % (Auto) 6.2 % % Eos % (Auto) 1.1 % % Baso % (Auto) 0.7 % % Neut # (Auto) 3.59 10^3/uL 10^3 /uL (1.8-7.7) Lymph # (Auto) 1.5 10^3/uL 10^3/ uL (0.8-4.8) [place] # (Auto) 0.3 10^3/uL 10^3/ uL (0.2-0.9) Eos # (Auto) 0.1 10^3/uL 10^3/ uL (0.0-0.8) Baso # (Auto) 0.0 10^3/uL 10^3/ uL (0.0-0.1) Nucleated RBC % (a uto) 0 % % Nucleated RBCs # 0.0 /100WBC /100W BC Sodium 136 mmol/L mmol/L (136-145) Potassium 4.0 mmol/L mmol/L (3.5-5.1) Chloride 100 mmol/L mmol/L (98-107) Carbon Dioxide 25 mmol/L mmol/L (22-29) Anion Gap 15.0 (5-19) BUN 18 mg/dL mg/dL (8-23) Creatinine 0.6 mg/dL L mg/dL (0.7-1.2) GFR Calculation 133.2 mL/min H mL /min (90-130) Glucose 78 mg/dL mg/dL (65-115) Calculated Osmolal ity 283 mOsm/kg L mOs m/kg (285-295) Calcium 9.0 mg/dL mg/dL (8.5-10.5) Total Bilirubin 0.3 mg/dL mg/dL (0.15-1.2) AST 29 U/L U/L (0-40) ALT 21 U/L U/L (0-41) Alkaline Phosphata se 95 IU/L IU/L (40-130) Creatine Kinase 123 U/L U/L (39-308) Total Protein 7.2 g/dL g/dL (6.6-8.7) Albumin 4.2 g/dL g/dL (3.5-5.2) Globulin 3.0 g/dL g/dL (1.3-4.6) Discharge Plan Discharge Patient Disposition: Home Clinical Impression: Generalized seizure Condition: Stable Prescriptions: No Action multivitamin Tablet 1 tab PO DAILY RF: 0 melatonin 5 mg Tablet 5 mg PO BEDTIME PRN (Reason: Sleep) RF: 0 ferrous sulfate 325 mg (65 mg iron) tablet 325 mg PO DAILY RF: 0 dicyclomine 20 mg tablet 20 mg PO QID Qty: 20 RF: 0 Discharge Orders: Discharge ED (Routine); Ordered 08/23/21 Ordered By: Don Montemayor Referrals: Myles Rogers, ACCOUNT EXECUTIVE SALES REPRESENTATIVE-C [Primary Care Provider] - Discharge Diet: Usual diet Discharge Activity: Resume usual activity Patient Instructions: Opioid Safety Activity Restrictions/Additional Instructions: Do not drive until cleared by neurology. Case management will set up an outpatient MRI of the head and an EEG and follow-up with neurology. Return if you have further problems. Coding Level of Care Code ED Security Checker for Jhoana Quach Exam Comprehensive
[2021-08-23 15:20] LABS: Basophils % 0.7 %; Eosinophils # 0.1 10^3/uL (0.0-0.8); Eosinophils % 1.1 %; Hematocrit 42.7 % (42.0-52.0); Lymphocytes # 1.5 10^3/uL (0.8-4.8); Lymphocytes % 26.5 %; Mean Corpuscular HGB Conc 32.8 g/dL (30.0-36.0); Mean Corpuscular Hemoglobin 28.7 pg (28.0-34.0); Mean Corpuscular Volume 87.5 fl (80-94); Mean Platelet Volume 9.3 fL (7.4-10.4); Monocytes # 0.3 10^3/uL (0.2-0.9); Monocytes % 6.2 %; Neutrophils # 3.59 10^3/uL (1.8-7.7); Neutrophils % 65.3 %; Nucleated Red Blood Cells % 0 %; Platelet Count 357 10^3/cmm (130-400); Red Blood Count 4.88 10^6/uL (4.1-5.3); Red Cell Distribution Width 14.1 % (12.1-15.1); White Blood Count 5.5 10^3/uL (4.0-10.0)
[2021-08-23 15:44] LABS: Alanine Aminotransferase 21 U/L (0-41); Albumin Level 4.2 g/dL (3.5-5.2); Alkaline Phosphatase 95 IU/L (40-130); Aspartate Amino Transferase 29 U/L (0-40); Blood Urea Nitrogen 18 mg/dL (8-23); Carbon Dioxide 25 mmol/L (22-29); Chloride 100 mmol/L (98-107); Creatine Phosphokinase 123 U/L (39-308); Glomerular Filtration Rate 133.2 mL/min (90-130); Glucose 78 mg/dL (65-115); Osmolality Calculated 283 mOsm/kg (285-295); Sodium 136 mmol/L (136-145); Total Bilirubin 0.3 mg/dL (0.15-1.2); Total Protein 7.2 g/dL (6.6-8.7)
[2021-08-23 16:13] VITALS: BP 128/74; PULSE 78; RESP 18; O2SAT 99
--- NOTE | 2021-08-26 14:19 | DCPLANNER ---
assistant maintenance manager had message to schedule an out patient MRI, a sleep deprived EEG and a follow up appointment with neurology. assistant maintenance manager faxed signed order to centralized scheduling, who will call patient with appointment information. assistant maintenance manager faxed signed order for sleep deprived EEG to neurology, who will call patient with appointment information. assistant maintenance manager also emailed patients information to the neurology clinic. Patients information will be printed and reviewed. Clinic will call patient with appointment information.
--- NOTE | 2021-08-28 13:53 | DCPLANNER ---
program manager slp was told from the neurology clinic, that the clinic attempted to contact patient and the phone number had been disconnected.
--- NOTE | 2021-09-13 08:09 | DCPLANNER ---
Patients MRI is pending with insurance. Sent an email to the neurology clinic checking on patients follow up appointment with neurology. gas operation manager also sent an email to neurology checking on a sleep deprived EEG.
--- NOTE | 2021-09-24 06:39 | DCPLANNER ---
Patient has an MRI scheduled for for Friday, October 08, 2021 at 1:00. financial risk manager emailed the neurology clinic about a follow up appointment with Dr. Yip and the sleep deprived EEG.
--- NOTE | 2021-10-10 15:23 | DCPLANNER ---
Patient had an MRI scheduled - appointment cancelled.
== END 2021-08-23 16:14 | disposition home or self-care (01) ==
PROVIDERS: Emergency Provider Family Medicine; PCP Nurse Practitioner
DX: G40.89 Other seizures (principal)
CPT/HCPCS: 70450; 80053; 82550; 85025; 99282

== ENCOUNTER 2021-09-08 16:15 | Emergency (ER) | payer MEDICAID, SELFPAY ==
[2021-09-08 17:11] VITALS: BP 123/72; PULSE 116; RESP 16; TEMP 36.8; O2SAT 97; BMI 17.7
--- NOTE | 2021-09-08 20:36 | XRR_ITS ---
PROCEDURE INFORMATION: Exam: XR Abdomen Exam date and time: 09/08/2021 8:36 PM Age: 70 years old Clinical indication: Abdominal pain; Generalized; Prior surgery; Surgery date: 6+ months; Surgery type: Appy TECHNIQUE: Imaging protocol: XR of the abdomen. Views: Frontal supine view of the abdomen. 1 View. COMPARISON: CT abdomen pelvis w con* [id number] 08/22/2021 10:29 AM FINDINGS: Gastrointestinal tract: Nondilated bowel gas pattern. Intraperitoneal space: Negative for pneumoperitoneum. Bones/joints: Rightward convex lumbar spine scoliosis. Other findings: Large fecal volume. XR/XR KUB portable [id number] IMPRESSION: 1. Constipation. 2. Negative for acute abdominal abnormality. Radiation Dose CTDIVOL = (mGy): DLP = (mGy-cm)
[2021-09-08 21:10] LABS: Basophils % 0.3 %; Eosinophils # 0.1 10^3/uL (0.0-0.8); Eosinophils % 0.6 %; Hematocrit 48.9 % (42.0-52.0); Hemoglobin 15.4 g/dL (11.7-16.6); Lymphocytes # 1.4 10^3/uL (0.8-4.8); Lymphocytes % 11.4 %; Mean Corpuscular HGB Conc 31.5 g/dL (30.0-36.0); Mean Corpuscular Hemoglobin 28.2 pg (28.0-34.0); Mean Corpuscular Volume 89.4 fl (80-94); Mean Platelet Volume 9.7 fL (7.4-10.4); Monocytes # 0.8 10^3/uL (0.2-0.9); Monocytes % 6.5 %; Neutrophils # 9.68 10^3/uL (1.8-7.7); Neutrophils % 80.9 %; Nucleated Red Blood Cells % 0 %; Platelet Count 391 10^3/cmm (130-400); Red Blood Count 5.47 10^6/uL (4.1-5.3); Red Cell Distribution Width 13.6 % (12.1-15.1)
[2021-09-08 21:37] LABS: Alanine Aminotransferase 27 U/L (0-41); Albumin Level 4.7 g/dL (3.5-5.2); Alkaline Phosphatase 113 IU/L (40-130); Blood Urea Nitrogen 28 mg/dL (8-23); C Reactive Protein 0.3 mg/L (0.0-4.9); Calcium 9.1 mg/dL (8.5-10.5); Carbon Dioxide 22 mmol/L (22-29); Chloride 105 mmol/L (98-107); Creatinine Clr Calc Pharmacy 60.6363; Glomerular Filtration Rate 111.5 mL/min (90-130); Glucose 89 mg/dL (65-115); Lipase 93 U/L (13-60); Osmolality Calculated 295 mOsm/kg (285-295); Sodium 140 mmol/L (136-145); Total Bilirubin 0.3 mg/dL (0.15-1.2); Total Protein 7.7 g/dL (6.6-8.7)
[2021-09-08] MEDS: haloperidol inj 5 mg/mL INJ 1 mL 3 MG IVP (21:40)
[2021-09-08 21:46] LABS: Add Urine Microscopic? NO; Charge for UA Resulting for Rev
[2021-09-08 21:49] LABS: Anion Gap 17.3 (5-19); Aspartate Amino Transferase 36 U/L (0-40); Potassium 4.3 mmol/L (3.5-5.1)
[2021-09-08 21:49] LABS: Bilirubin Urine Neg (Negative); Blood Urine Neg (Negative); Glucose Urine UA Norm (Normal); Ketones Urine 1+ (Negative); Leukocyte Esterase Urine Negative (Negative); Nitrate Urine Negative (Negative); Protein Urine Neg (Negative); Urine Appearance Clear (CLEAR); Urine Color Yellow (Yellow); Urobilinogen Urine Norm (Negative); pH Urine 5 (5-7)
[2021-09-08] MEDS: mineral oil 30 mL UDC PO (22:07)
[2021-09-08] MEDS: lactulose oral liq 20 gm/30 mL UDC PO (22:07)
[2021-09-08] MEDS: magnesium hydroxide 30 mL UDC PO (22:07)
--- NOTE | 2021-09-08 22:22 | ED_ITS ---
HPI - Abdominal Pain General: Chief Complaint: Abdominal Pain Stated Complaint: BLOODY STOOL Time Seen by Provider: 09/08/21 19:53 History of Present Illness: HPI narrative: 70-year-old gentleman with abdominal pain and rectal bleeding. He states that he had 3 Thanksgiving meals over the last 3 days, and ate quite a bit. He has not had a bowel movement at all. He notes that today he has not been able to urinate, or have a bowel movement. He denies any back pain. After straining to have a BM several times today, he began to note some rectal bleeding. It is bright red blood. It is not an a large amount. There is no clot. No fever. No vomiting he complains of belly pain and rectal pain. MD elicited complaint: abdominal pain Pertinent past history: constipation Onset (ago): day(s) Pain Consistency: constant Location: Diffuse Severity: moderate Quality: cramping Radiation: none Migration to: no migration Exacerbating factors: bowel movement (At least trying) Relieving factors: nothing Context: other Associated Symptoms: Reports change in bowel habits, change in stool character, constipation, GI cramping, hematochezia and nausea; Denies belching, bloating, diarrhea, dyspepsia, dysuria, fever(s), fecal incontinence and vomiting Review of Systems Const: Denies: fever(s) Card: Denies: chest pain Resp: Denies: dyspnea, productive cough or non-productive cough GI: Reports: nausea, constipation, GI cramping, change in bowel habits, change in stool character and hematochezia; Denies: vomiting, diarrhea, bloating, belching or fecal incontinence : Denies: dysuria PFS ED PFSH: Medical History Anxiety and depression History of iron deficiency PVC (premature ventricular contraction) Vitamin D deficiency Surgical History (Updated 08/27/21 @ 16:25 by AMIRA Hernandez) History of appendectomy Family History Other Adopted Social History Smoking and tobacco status: former smoker Second hand smoke exposure: No Smoking risk assessment/counseling performed?: No Alcohol intake: never Desire information about alcohol rehabilitation?: No Counseling given: No Desire information about substance/drug rehabilitation?: No Counseling given: No Adopted: Yes Caregiver/support person: No Lives independently: Yes Household members: other Housing: Other Marital status: Single Current occupational status: unemployed History of recent travel: Yes Details: [place] Out of country: Yes Current gender identity: Male Physical Exam Const: COMMON NORMALS: patient oriented x3 and alert GENERAL APPEARANCE: cooperative, anxious and frail appearing; not comfortable and not ill appearing NUTRITIONAL APPEARANCE: thin HENMT: COMMON NORMALS: normocephalic HEAD & SCALP: normocephalic Eye: COMMON NORMALS: Equal, round and reactive pupils present and EOMs intact bilaterally PUPIL: Yes Equal, round and reactive pupils present Chest: COMMONS NORMALS: normal inspection of the chest Resp: COMMON NORMALS: normal respiratory effort, No use of accessory muscles and clear to auscultation bilaterally AUSCULTATION: clear to auscultation bilaterally Cardio: COMMON NORMALS: regular rate and regular rhythm RATE: regular rate RHYTHM: regular rhythm GI: COMMON NORMALS: Normal to inspection, nondistended, normoactive bowel sounds present PALPATION: Yes Firmness to palpation present (GI) and Yes Tenderness to palpation present (GI) (Diffuse) RECTAL EXAM: Yes normal sphincter tone, Yes heme positive stool and No hemorrhoids Neuro: COMMON NORMALS: patient oriented x3 SENSORIUM/ORIENTATION: Yes alert Course Vital Signs: Vital signs: Vital Signs Temperature 98.2 F 09/08/21 23:37 Pulse Rate 90 09/08/21 23:37 Respiratory Rate 18 09/08/21 23:37 Blood Pressure 122/78 09/08/21 23:37 Pulse Oximetry 99 09/08/21 23:37 MDM - Abdominal Pain MDM Narrative: Medical decision making narrative: 70-year-old gentleman with urinary retention. He also has constipation. KUB shows extensive constipation without bowel obstruction. The patient was unable to urinate. Tapia was passed, with 600 mL of urine out quickly. The patient was very anxious on exam, another evaluation, and had to be given some Haldol for anxiolysis. He is given mineral oil plus lactulose plus milk of magnesia for relief of the constipation, which worked well. Patient is now much more comfortable. Would like to go home. Tapia catheter is pulled. He will go home on MiraLAX. Lab Data: Labs: Lab Results 09/08/21 09/08/21 09/08/21 20:50 20:50 21:35 WBC 12.0 10^3/uL H 10 ^3/uL (4.0-10.0) RBC 5.47 10^6/uL H 10 ^6/uL (4.1-5.3) Hgb 15.4 g/dL g/dL (11.7-16.6) Hct 48.9 % % (42.0-52.0) MCV 89.4 fl fl (80-94) MCH 28.2 pg pg (28.0-34.0) MCHC 31.5 g/dL g/dL (30.0-36.0) RDW 13.6 % % (12.1-15.1) Plt Count 391 10^3/cmm 10^3 /cmm (130-400) MPV 9.7 fL fL (7.4-10.4) Neut % (Auto) 80.9 % % Lymph % (Auto) 11.4 % % [place] % (Auto) 6.5 % % Eos % (Auto) 0.6 % % Baso % (Auto) 0.3 % % Neut # (Auto) 9.68 10^3/uL H 10 ^3/uL (1.8-7.7) Lymph # (Auto) 1.4 10^3/uL 10^3/ uL (0.8-4.8) [place] # (Auto) 0.8 10^3/uL 10^3/ uL (0.2-0.9) Eos # (Auto) 0.1 10^3/uL 10^3/ uL (0.0-0.8) Baso # (Auto) 0.0 10^3/uL 10^3/ uL (0.0-0.1) Nucleated RBC % (a uto) 0 % % Nucleated RBCs # 0.0 /100WBC /100W BC Sodium 140 mmol/L mmol/L (136-145) Potassium 4.3 mmol/L mmol/L (3.5-5.1) Chloride 105 mmol/L mmol/L (98-107) Carbon Dioxide 22 mmol/L mmol/L (22-29) Anion Gap 17.3 (5-19) BUN 28 mg/dL H mg/dL (8-23) Creatinine 0.7 mg/dL mg/dL (0.7-1.2) GFR Calculation 111.5 mL/min mL/m in (90-130) Glucose 89 mg/dL mg/dL (65-115) Calculated Osmolal ity 295 mOsm/kg mOsm/ kg (285-295) Calcium 9.1 mg/dL mg/dL (8.5-10.5) Total Bilirubin 0.3 mg/dL mg/dL (0.15-1.2) AST 36 U/L U/L (0-40) ALT 27 U/L U/L (0-41) Alkaline Phosphata se 113 IU/L IU/L (40-130) C-Reactive Protein 0.3 mg/L mg/L (0.0-4.9) Total Protein 7.7 g/dL g/dL (6.6-8.7) Albumin 4.7 g/dL g/dL (3.5-5.2) Globulin 3.0 g/dL g/dL (1.3-4.6) Lipase 93 U/L H U/L (13-60) Urine Color Yellow (Yellow) Urine Appearance Clear (CLEAR) Urine pH 5 (5-7) Ur Specific Gravit y 1.020 (1.005-1.030) Urine Protein Neg (Negative) Urine Glucose (UA) Norm (Normal) Urine Ketones 1+ H (Negative) Urine Blood Neg (Negative) Urine Nitrate Negative (Negative) Urine Bilirubin Neg (Negative) Urine Urobilinogen Norm mg/dL mg/dL (Negative) Ur Leukocyte Brandi ase Negative (Negative) Discharge Plan Discharge Patient Disposition: Home Clinical Impression: Acute urinary retention Constipation Qualifiers: Constipation type: unspecified constipation type Qualified Code(s): K59.00 - Constipation, unspecified Condition: Stable Prescriptions: New SmoothLax 17 gram/dose powder 17 g PO DAILY PRN (Reason: constipation) Qty: 119 RF: 0 No Action meclizine 25 mg tablet 25 mg PO BID PRN (Reason: vertigo) Qty: 60 RF: 1 buspirone 15 mg tablet 15 mg PO BID Qty: 60 RF: 5 multivitamin Tablet 1 tab PO DAILY RF: 0 melatonin 5 mg Tablet 5 mg PO BEDTIME PRN (Reason: Sleep) RF: 0 ferrous sulfate 325 mg (65 mg iron) tablet 325 mg PO DAILY RF: 0 dicyclomine 20 mg tablet 20 mg PO QID Qty: 20 RF: 0 Discharge Orders: Discharge ED (Routine); Ordered 09/08/21 Ordered By: Emmett Veloz Referrals: Myles Rogers, EPIC ANESTHESIA ANALYST-C [Primary Care Provider] - 1-3 days Patient Instructions: Constipation (ED), Urinary Retention in Men (ED) Activity Restrictions/Additional Instructions: Return for fever greater than 100, worsening pain, inability to urinate or have a bowel movement despite treatment, other concerning symptoms. Use the medication you were given daily for the next 3 days, then as needed. Coding Level of Care Code ED [employer] Gl[employer]ier for Bayg Fwd Exam Detailed
[2021-09-08 23:15] VITALS: RESP 22; O2SAT 98
[2021-09-08] MEDS: morphine 4 mg/mL SDV 1 mL IVP (23:15)
[2021-09-08 23:37] VITALS: BP 122/78; PULSE 90; RESP 18; TEMP 36.8; O2SAT 99
--- NOTE | 2021-09-09 07:17 | PC.NURSE ---
Per order, 10 mL balloon deflated and urinary catheter removed without incident . Pt tolerated procedure without complaint. Pt stated I feel much better now, Thank you!
== END 2021-09-08 23:35 | disposition home or self-care (01) ==
PROVIDERS: Emergency Provider Emergency Medicine; PCP Nurse Practitioner
DX: R33.9 Retention of urine, unspecified (principal); K59.00 Constipation, unspecified; Z87.891 Personal history of nicotine dependence
CPT/HCPCS: 51702; 51798; 74018; 80053; 81003; 83690; 85025; 86140; 96374; 96375; 99284; J1630; J2270

== ENCOUNTER → 2021-12-16 09:04 | Outpatient (BNVA) | payer MEDICAID, SELFPAY | PROVIDERS: PCP Nurse Practitioner; Visit Provider Nurse Practitioner Family | DX: Z20.822 Contact with and (suspected) exposure to COVID-19 (principal) | CPT/HCPCS: 87635 ==